=== PATIENT | female | born 2005 | race Caucasian/White ===

== ENCOUNTER → 2024-01-18 16:52 | Outpatient (REF) | payer BC, SELFPAY | LOC: RAD 16:52 | PROVIDERS: ATTENDING PHYSICIAN Physician Assistant Medical | DX: J40 Bronchitis, not specified as acute or chronic (principal); R05.3 Chronic cough | CPT/HCPCS: 71046 ==

== ENCOUNTER 2025-05-02 20:27 | Emergency (ER) | payer BC, SELFPAY ==
[2025-05-02 20:28] VITALS: BP 131/69
[2025-05-02 21:02] LABS: Hematocrit 38.2 % (37.0-47.0); Hemoglobin 12.8 g/dL (12.0-16.0); Mean Corp Hgb Conc. 33.5 g/dL (33.0-37.0); Mean Corpuscular Volume 82.0 fL (81.0-99.0); Nucleated Red Blood Cells % 0 %; Platelet Count 325 10^3/uL (130-400); Red Cell Dist. Width 13.5 % (11.5-14.5)
[2025-05-02 21:05] LABS: Urine Character Cloudy (Clear)
[2025-05-02 21:15] LABS: HCG, Serum Qualitative Screen Positive
[2025-05-02 21:22] LABS: ALT (SGPT) 16 U/L (0-35); AST (SGOT) 26 U/L (14-36); Albumin 5.0 g/dl (3.5-5.0); Alkaline Phosphatase 67 U/L (38-126); Blood Urea Nitrogen 14 mg/dl (7-17); Calcium 10.1 mg/dl (8.4-10.2); Carbon Dioxide 26 mmol/L (22-30); Chloride 103 mmol/L (98-107); Glucose 103 mg/dl (70-99); Potassium 3.9 mmol/L (3.5-5.1); Sodium 137 mmol/L (135-145); Total Protein 8.0 g/dl (6.3-8.2); eGFR > 60.00
--- NOTE | 2025-05-02 21:40 | ED.GENMED ---
History of Present Illness
General
Chief Complaint: Abdominal Pain
Source: patient
Exam Limitations: none
Time Seen by Provider: 05/02/25 20:39
Nursing documentation reviewed up to this point in time: agreed with
History of Present Illness
History of Present Illness:
Patient is a 19-year-old female, who presents to the emergency department with right pelvic pain in setting of early . Patient states that over the past week she has had intermittent pain in her right lower abdomen/pelvic region. She
also has been experiencing light and intermittent vaginal spotting which has been dark brown in color. She denies passing any clots. Prior to evaluation to evaluation in the ED�she did have 1 episode of vomiting at home. Patient denies any
associated fever or chills. No anorexia. No diarrhea/constipation or urinary symptoms. Patient has not had any episodes of syncope.
Patient states that her last menstrual period was March 21. She had an at-home positive swab 1 week ago. She is scheduled for her initial appointment with [facility] on May 11.
Patient had a medical with her first .
Past History
Past History
ED Past Medical History: None
ED Past Surgical History: None
Review of Systems
Review of Systems
Allergies reviewed?: Yes
All Other Systems: ROS reviewed and negative except as documented in HPI and ROS
Phy Exam
Physical Exam
Physical Exam:
Vitals: Patient's vital signs are stable. Afebrile
General: Patient is well appearing, no acute distress. Nontoxic-appearing
Skin: Warm and dry, no rashes or lesions
Head: Normocephalic, atraumatic
Eyes: Sclera nonicteric.
Throat: Protecting airway
Neck: Normal ROM, no cervical spine tenderness, no meningismus
Cardiac: Regular rate and rhythm, no murmurs.
Pulm: Normal respiratory effort. Lungs clear
Abdomen: Abdomen soft. Mild tenderness in right pelvic region. No focal tenderness McBurney's point. No rebound or guarding
Extremities: No evidence of cyanosis or edema
Neuro: AAOx3. Grossly intact
Psychiatric: Normal affect.
Course
Orders/Labs/Results
Orders:
Orders
05/02/25 20:50
Test Result ONCE
05/02/25 20:52
Type And Crossmatch [Type+Screen] Urgent
Beta HCG Quantitative Urgent
Comment: ADD ON
Complete Blood Count/With Diff Urgent
Comprehensive Metabolic Panel Urgent
HCG, Serum Qualitative Screen Urgent
Urinalysis Reflex To Culture Urgent
Date Specimen was Collected: 05/02/25
Time Specimen was Collected: 20:50
05/02/25 21:22
Add On- LAB Urgent
Tests Added?: hcg, quant
05/02/25 21:29
US W Transvaginal Urgent
Reason For Exam: right pelvic pain
05/02/25 21:39
0.9% Sodium Chloride 1000 ml [Nss] 1,000 ml IV BOLUS
Abnormal Lab Results
05/02/25
20:52
Glucose 103 H mg/dl
(70-99)
05/02/25 20:52
05/02/25 20:52
Vital Signs
Initial and Last Documented VS:
Initial Vital Signs
Temp Pulse Resp BP Pulse Ox
97.9 F 102 18 131/69 99
05/02/25 20:28 05/02/25 20:28 05/02/25 20:28 05/02/25 20:28 05/02/25 20:28
Last Documented Vital Signs
Temp Pulse Resp BP Pulse Ox
97.9 F 67 18 98/61 99
05/02/25 20:28 05/03/25 00:00 05/03/25 00:00 05/03/25 00:00 05/03/25 00:00
MDM/Problems Addressed
Differential Diagnosis Includes:
Not limited to: Threatened , missed , ectopic , ovarian cyst/torsion, appendicitis, viral gastroenteritis, etc.
MDM/Problems Addressed:
19-year-old presenting with right sided pelvic pain and vaginal spotting. Positive at-home test 1 week ago, LMP 11/16. No ultrasound documented thus far. No fevers or anorexia. She has had a few episodes of vomiting.
Vitals and physical exam as above. Her abdomen is soft with mild reproducible pain in right pelvic region. No focal tenderness at McBurney point. Otherwise physical exam unremarkable. Labs were sent prior to my evaluation without clinically
significant abnormalities. Hemoglobin normal. test is positive.
Concern would be threatened miscarriage, ectopic , etc. Do not suspect acute intra-abdominal infectious process given patient is afebrile with benign abdominal exam and no leukocytosis. Will obtain pelvic ultrasound, give IV fluids.
Update: Ultrasound does reveal a IUP estimated be 6 weeks gestation. Discussed with patient at length. Her bleeding is very minimal and she remains hemodynamically stable. Blood type O-. I did discuss with [facility] on-call, Dr. Cooney who does
not recommend RhoGAM prior to 12 weeks. She will require close follow-up with [facility] outpatient for serial hCGs and further monitoring. Patient will contact office in morning for x-ray to follow-up. Return precautions discussed.
Chronic conditions affecting care:
N/A
Acute Exacerbation and/or Progression of Chronic Illness:
N/A
*Radiology
Radiology exam reviewed: radiology read reviewed
*Pulse Oximetry
SaO2: 99
Oxygen Mode of Delivery: Room air
Patient hypoxic: no
*EKG
Interpreted by ED Provider?: NA
*Multimedia Manager Interpretation
Rate: Multimedia Manager- N/A
*Critical Care Note
Total Time (30-74mins, 75-104mins- exclusive of procedures): Not Applicable
Patient Management
Discussion with other providers: Buyer Liaison (Case discussed with [facility])
ED Attending Note
-
Portions of this chart may have been created with voice recognition software.� Occasional wrong word or��sound alike� substitutions may have occurred due to the inherent limitations of voice recognition software.
Discharge Plan
Departure
Patient Disposition: Home (Routine Discharge)
Date of Disposition: 05/03/25
Time of Disposition: 01:16
Patient with high blood pressure during this ER visit?: Yes
Condition: Good
Discharge Problem:
Threatened miscarriage in early
Instructions: Bleeding in early (DC), BLOOD PRESSURE
Prescriptions:
No Action
ferrous sulfate 325 mg (65 mg iron) tablet
325 mg PO Q48H Qty: 30 0RF
Rx Instructions:
every other day as you tolerate
Referrals:
Felicity Cooney MD [Active, Gynecology] - Follow up in 2-3 days
Jessica Law PA-C [Family Provider, Family Practice]
Activity Restrictions/Additional Instructions:
RETURN TO THE EMERGENCY DEPARTMENT WITH ANY PERSISTENT OR HEAVY VAGINAL BLEEDING, PASSAGE OF LARGE CLOTS, SEVERE ABDOMINAL PAIN, LIGHTHEADEDNESS OR EPISODES OF FAINTING, WORSENING IN CURRENT SYMPTOMS, OR ANY OTHER CONCERNS
- As discussed�your test was positive today in the emergency department. Your ultrasound showed an intrauterine approximately 6 weeks gestation.
- You will need close follow-up with your [facility] for repeat hCG values and potentially repeat ultrasounds. Please call their office Sunday for close follow-up
- It is important to stay well-hydrated. You can take Tylenol as needed for pain
Monitor your symptoms closely return to the emergency department with any acute worsening/new symptoms or any other concerns
Interventions
Interventions:
*General Assessment Last Done: 05/02/25 20:28
*Neglect/Abuse Screening Last Done: 05/02/25 20:28
*ED Influenza Vaccine History Last Done: 05/02/25 20:28
[facility] Risk Assessment Tool Last Done: 05/02/25 20:55
*Risk Screen - Suicide (C-SSRS) Last Done: 05/02/25 20:28
*Nursing Disposition Last Done: 05/03/25 01:27
YB-Wbsjfx-Qizachpdnj Assessment Last Done: 05/02/25 21:01
Discharge Date and Time
Discharge Date/Time: 05/03/25 01:38
Print Language: SENEGALESE
[2025-05-02] MEDS: NSS 1000 IV (21:43)
[2025-05-03] VITALS: BP 98/61
== END 2025-05-03 01:38 | disposition home or self-care (01) ==
LOC: EMR 20:27
PROVIDERS: Physician Assistant; EMERGENCY PHYSICIAN Emergency Medicine; FAMILY PHYSICIAN Physician Assistant Medical
DX: O20.0 Threatened abortion (principal); O21.9 Vomiting of pregnancy, unspecified; Z3A.01 Less than 8 weeks gestation of pregnancy
CPT/HCPCS: 99285; 96360; 76801; 76817; 80053; 81003; 84702; 84703; 85025; 86850; 86900; 86901